=== PATIENT | male | born 1990 | race Caucasian/White ===

== ENCOUNTER 2017-12-28 15:47 | Emergency (ER) | payer SELFPAY ==
[~2017-12-28] VITALS: Ht 180.3 cm; Wt 94.0 kg
[2017-12-28] MEDS ORDERED: SUMATRIPTAN SUCCINATE 25MG TABLET PO ONE (19:15)
[2017-12-28 20:35] VITALS: BP 153/84
== END 2017-12-28 20:38 | disposition home or self-care (01) ==
LOC: ER 15:47
DX: R51 Headache (principal); F17.200 Nicotine dependence, unspecified, uncomplicated
CPT/HCPCS: 99283